=== PATIENT | male | born 1970 | race Caucasian/White ===

== ENCOUNTER 2019-03-20 11:39 | Emergency (ER) | payer BC ==
--- NOTE | 2019-03-20 11:49 | PDOC ---
History of Present Illness - General Chief Complaint: Head/Neck problem Stated Complaint: CONCUSSION Time Seen by Provider: 03/20/19 11:45 History Source: Patient, Spouse - History of Present Illness Initial Comments: 03/20/19 12:24 Pt presents to the ED complaining of a three day history of progressively improving neck pain, nausea and vomiting. Patient states that he has been having persistent neck pain while exercising for "a while" and that , while doing pull ups, he "tweaked his neck and experienced shooting neck pain. He then felt lightheaded. He knelt to relieve the pain and and fell forward. He believes that he may have lost consciousness. Patient then had an episode of vomiting and persistent nausea that lasted all night and into the next day. Patient denies headache, but complains of pain at the base of his neck that occurs when he turns his head or walks around. Pain was improving yesterday and today and now is almost gone. When patient is stationary, he feels no pain. Now feels only "slight twinge" in the neck when he turns his head. Patient denies nausea and is tolerating PO. 03/20/19 13:07 03/20/19 13:30 Is this a multiple visit Asthma Patient?: No Past History - Past Medical History Allergies/Adverse Reactions: Allergies Allergy/AdvReac Type Severity Reaction Status Date / Time No Known Allergies Allergy Verified 03/20/19 11:43 Home Medications: Ambulatory Orders Ibuprofen 800 mg PO TID PRN #30 tablet 03/20/19 Ibuprofen 800 mg PO TID PRN #30 tablet 03/20/19 Ibuprofen [Advil -] 400 mg PO ONCE PRN 03/20/19 Lidocaine 5% Patch [Lidoderm -] 1 patch TP DAILY #7 patch 03/20/19 Lidocaine 5% Patch [Lidoderm -] 1 patch TP DAILY #7 patch 03/20/19 Ondansetron [Zofran *Odt*] 4 mg SL TID #10 od.tablet 03/20/19 Ondansetron [Zofran *Odt*] 4 mg SL TID #21 od.tablet 03/20/19 Review of Systems - Review of Systems Able to Perform ROS?: Yes Is the patient limited Telugu proficient: No Constitutional: No: Symptoms Reported, See HPI, Chills, Diaphoresis, Fever, Loss of Appetite, Malaise, Night Sweats, Weakness, Weight Stable, Unintentional Wgt. Loss, Unexplained wgt Loss, Other HEENTM: No: Symptoms Reported, See HPI, Eye Pain, Blurred Vision, Tearing, Recent change in vision, Double Vision, Cataracts, Ear Pain, Ocular Prothesis, Ear Discharge, Nose Pain, Nose Congestion, Tinnitus, Nose Bleeding, Hearing Loss , Throat Pain, Throat Swelling, Mouth Pain, Dental Problems, Difficulty Swallowing, Mouth Swelling, Other Respiratory: No: Symptoms reported, See HPI, Cough, Orthopnea, Shortness of Breath, SOB with Exertion, SOB at Rest, Stridor, Wheezing, Productive cough, Hemoptysis, Other Cardiac (ROS): No: Symptoms Reported, See HPI, Chest Pain, Edema, Irregular Heart Rate, Lightheadedness, Palpitations, Syncope, Chest Tightness, Other ABD/GI: Yes: Nausea, Vomiting : No: Symptoms Reported, See HPI, Burning, Dysuria, Discharge, Frequency, Flank Pain, Hematuria, Incontinence, Pain, Urgency, Testicular Mass, Testicular Swelling, Lesions, Testicular Pain, Other Musculoskeletal: Yes: Neck Pain Integumentary: No: Symptoms Reported, See HPI, Bruising, Change in Color, Change in Hair/Nails, Dryness, Erythema, Flushing, Lesions, Lumps, Pallor, Pruritus, Rash, Sweating, Other Neurological: No: Symptoms reported, See HPI, Headache, Numbness, Paresthesia, Pre-Existing Deficit, Seizure, Tingling, Tremors, Weakness, Unsteady Gait, Ataxia, Dizziness, Other *Physical Exam - Physical Exam 03/20/19 13:32 gen: alert, NAD HEENT: normocephalic, atraumatic Neck: supple, full ROM, + point tenderness over trapezius muscle CV: rrr no m/r/g Pulm: CTA b/l Abdomen:soft, non tender, non distended, no guarding or rebound Neuro: alert and oriented x 3, CN grossly intact, 5/5 strength b/l lower extremities, ambulatory with steady gait Medical Decision Making - Medical Decision Making 03/20/19 13:44 pt presents to the ED complaining of neck pain, with nausea and vomiting. Pain is inconsistent with SAH because there is no HINDS, and because it occurred only with turning the head. Nausea and vomiting may have been secondary to concussion ( patient hit his head when he fell forward on ), but it seems to have now resolved. No suspicion for traumatic ICH given that fall was 3 days ago, patient is neurologically intact and symptoms are rapidly improving. Will discharge home with instructions to return to the ED for new or worsening symptoms. Discharge - Discharge Information Problems reviewed: Yes Clinical Impression/Diagnosis: Neck strain Qualifiers: Encounter type: initial encounter Qualified Code(s): S16.1XXA - Strain of muscle, fascia and tendon at neck level, initial encounter Concussion Qualifiers: Encounter type: initial encounter Loss of consciousness presence/duration: with LOC of 30 min or less Qualified Code(s): S06.0X1A - Concussion with loss of consciousness of 30 minutes or less, initial encounter Condition: Good Disposition: HOME - Admission No - Additional Discharge Information Prescriptions: Ibuprofen 800 mg PO TID PRN #30 tablet PRN Reason: Severe Pain Ibuprofen 800 mg PO TID PRN #30 tablet PRN Reason: Pain Lidocaine 5% Patch [Lidoderm -] 1 patch TP DAILY #7 patch Lidocaine 5% Patch [Lidoderm -] 1 patch TP DAILY #7 patch Ondansetron [Zofran *Odt*] 4 mg SL TID #10 od.tablet Ondansetron [Zofran *Odt*] 4 mg SL TID #21 od.tablet - Follow up/Referral - Patient Discharge Instructions Patient Printed Discharge Instructions: DI for Concussion, DI for Neck Pain Additional Instructions: You came to the ED complaining of neck pain, headache, nausea and vomiting. These symptoms are most likely caused by a concussion and a pulled muscle in the neck. However, you should return to the ED immediately for severe headache or persistent nausea or vomiting, as these may be signs of a more serious condition. - Post Discharge Activity
[2019-03-20 11:59] VITALS: BP 130/90; PULSE 95; TEMP 98.7; BMI 28.0
== END 2019-03-20 12:42 | disposition home or self-care (01) ==
LOC: FER 11:39
DX: S06.0X1A Concussion with loss of consciousness of 30 minutes or less, initial encounter (principal); S16.1XXA Strain of muscle, fascia and tendon at neck level, initial encounter; W18.30XA Fall on same level, unspecified, initial encounter; Y93.89 Activity, other specified; Y92.89 Other specified places as the place of occurrence of the external cause
CPT/HCPCS: 99282-25